=== PATIENT | female | born 1940 | race Caucasian/White ===

== ENCOUNTER 2023-03-07 13:54 | Emergency (ER) | payer OTHER, MEDICARE ==
[2023-03-07 14:27] VITALS: BP 131/40; PULSE 78
== END 2023-03-07 17:43 | disposition home or self-care (01) ==
LOC: JP.ED 13:54
DX: S63.641A Sprain of metacarpophalangeal joint of right thumb, initial encounter (principal); S80.01XA Contusion of right knee, initial encounter; S80.211A Abrasion, right knee, initial encounter; Z88.2 Allergy status to sulfonamides; Z91.041 Radiographic dye allergy status; Z88.8 Allergy status to other drugs, medicaments and biological substances; Z79.899 Other long term (current) drug therapy; W01.0XXA Fall on same level from slipping, tripping and stumbling without subsequent striking against object, initial encounter
CPT/HCPCS: 73140-26-F5; 73140-F5; 73562-26-RT; 73562-RT; 73700-26-RT; 73700-RT; 99284